=== PATIENT | female | born 1975 | race Caucasian/White ===

== ENCOUNTER 2019-11-29 23:33 | Emergency (ER) | payer BC, SELFPAY ==
--- NOTE | ~2019-11-29 | XR_ITS ---
EXAMINATION: XR chest 2V DATE: 11/30/2019 00:28 INDICATION: Chest pain TECHNIQUE: PA and lateral views of the chest were obtained. COMPARISON: None FINDINGS: The lungs are clear with no focal airspace opacities, pulmonary edema, pleural effusion or pneumothor ax. The cardiomediastinal silhouette is normal. Mild thoracic spondylosis. IMPRESSION: 1. No acute cardiopulmonary disease. Reviewed, dictated and finalized at location A.
[2019-11-29 23:45] VITALS: BP 134/86; PULSE 86; RESP 16; TEMP 37; O2SAT 100
[2019-11-29 23:49] VITALS: PULSE 86
--- NOTE | 2019-11-29 23:52 | ED.CHESTPAIN ---
HPI - Chest Pain General Chief Complaint: Chest Pain Stated Complaint: chest pain Time Seen by Provider: 11/29/19 23:45 History of Present Illness HPI narrative: 44-year-old female presents emergency department with a 3-day history of patient rates pain 6 out of 10. She denies any cough, fever or chills. She has had some nasal congestion with a headache but was able to go to work today. She has been taking ibuprofen and Tylenol without relief. Pain in the right side of the chest increases with deep inspiration. She denies any travel history or exposure to anyone with illness. Related Data Allergies Allergy/AdvReac Type Severity Reaction Status Date / Time No Known Allergies Allergy Unverified 12/31/15 15:14 Review of Systems Review of Systems: Narrative: CONSTITUTIONAL: Denies fever, chills, or sweats. EYES: Denies visual changes or discharge. Had an injection to the right eye today and has some redness related to injection. ENT: Denies rhinorrhea, sore throat, or otalgia. Reports nasal congestion. CARDIOVASCULAR: Reports chest pain, denies palpitations. RESPIRATORY: Noted intermittent shortness of breath on Friday. GASTROINTESTINAL: Denies abdominal pain, vomiting. Has had occasional nausea and diarrhea. GENITOURINARY: Denies dysuria or hematuria. SKIN: Denies rash or itching. MUSCULOSKELETAL: Denies back pain, joint pain, or myalgia. Denies lower extremity pain. NEUROLOGIC: Denies numbness, or weakness. Reports headache PSYCHIATRIC: Denies anxiety or depression. [facility] Past Medical History Medical History (Updated 11/30/19 @ 02:01 by SUDHIR Arango) Hypothyroidism PXE (pseudoxanthoma elasticum) Social History Social History (Updated 11/30/19 @ 00:21 by SUDHIR Arango) Smoking status: Former smoker Alcohol intake: current Substance use: never Living arrangements: with family Gender identity (if verbalized by the patient): Female Exam Narrative: Exam Narrative: GENERAL: no acute distress. HEAD: Normocephalic, atraumatic. EYES:Sclera right eye is erythematic-pt had injection today due to PXE (states normal after injection). Slcera otherwise anicteric. ENT: Nares clear, no rhinorrhea or epistaxis. Mucous membranes moist. NECK: Supple. CHEST: Clear to auscultation. No respiratory distress. Pain is reproducible with pressure applied to right side of chest. No rash. HEART: Regular rate and rhythm. No murmur heard. Normal peripheral pulses. ABDOMEN: Soft, nontender, nondistended, normal active bowel sounds. EXTREMITIES: Normal range of motion. No edema. SKIN: Warm, dry, no rash. NEURO: No focal deficits. Alert and oriented x3. PSYCH: Normal mood and affect. Course Course Emergency Course: Pt reports some mild relief after toradol to tightness in chest but not complete relief. Discussed lab/diagnostic findings and liklihood of M/S pain. Pt comfortable being d/c home. HOme with spouse. Vital Signs Vital signs: Vital Signs Temperature 37.0 C 11/29/19 23:45 Pulse Rate 86 11/29/19 23:45 Respiratory Rate 16 11/29/19 23:45 Blood Pressure 134/86 11/29/19 23:45 Pulse Oximetry 100 11/29/19 23:45 Temperature 37.0 C 11/29/19 23:45 Pulse Rate 84 11/30/19 01:06 Respiratory Rate 16 11/30/19 01:06 Blood Pressure 128/78 11/30/19 01:06 Pulse Oximetry 98 11/30/19 01:06 MDM - Chest Pain MDM Narrative Medical decision making narrative: Pt had presented with a 4 day history of chest tightness that has not been relieved with ibuprofen/tylenol (taken intermittently) at home. She went to work today and was able to work through the pain but states noted an increase this evening which brought her to the ED. She is tearful and anxious in the room and reports feeling anxious about the symptoms. She had scheduled an appointment with her PCP for tomorrow but felt evaluation sooner was needed. Her PERC score is 0. She has not been tachycardic or hypoxic in the ED. Pain is repr
--- NOTE | 2019-11-29 23:56 | ECG_ITS ---
Measurements Intervals [place] Rate: 86 P: 63 [place]: 143 QRS: 50 QRSD: 90 T: 55 QT: 362 QTc: 435 Interpretive Statements SINUS RHYTHM BASELINE ARTIFACT- I, II, III, AVR, AVL, AVF NORMAL ECG Electronically Signed On 11-30-2019 7:18:23 CDT by Rodrigue gM D.O.
[2019-11-30 00:27] LABS: Basophils Absolute Auto 0.1 K/mm3 (0.0-0.1); Basophils Percent Auto 0.5 % (0.2-1.2); Eosinophils Absolute Auto 0.2 K/mm3 (0-0.3); Eosinophils Percent Auto 1.5 % (0-4.4); Hematocrit 42.3 % (37.0-47.0); Immature Granulocyte Absolute 0.05 K/mm3 (0.00-0.031); Immature Granulocyte Percent A 0.4 % (0-0.5); Lymphocytes Absolute Auto 2.65 K/mm3 (0.9-3.2); Lymphocytes Percent Auto 22.2 % (18.3-44.2); Mean Corpuscular HGB Conc 33.1 g/dl (32-36); Mean Corpuscular Hemoglobin 31.4 pg (26-34); Mean Corpuscular Volume 94.8 fl (80-100); Mean Platelet Volume 11.2 fl (7.4-10.4); Monocytes Percent Auto 8.5 % (2.6-8.5); Neutrophils Percent Auto 66.9 % (45.5-73.1); Platelet Count Result 328 k/mm3 (150-375); Red Blood Count 4.46 M/mm3 (4.2-5.4); Red Cell Distribution Width 12.5 % (11.5-14.5); White Blood Count 11.9 K/mm3 (4.5-10.0)
[2019-11-30] MEDS: ASPIRIN 81 MG CHEWABLE TABLET 324 MG PO (00:32)
[2019-11-30 00:54] LABS: INR 0.9; Prothrombin Time 12.2 Seconds (11.1-14.7)
[2019-11-30 00:55] LABS: Partial Thromboplastin Time 29.6 SECONDS (22.3-36.8)
[2019-11-30 01:01] LABS: Alanine Aminotransferase 16 U/L (4-35); Albumin Level 4.4 g/dL (3.5-5.1); Alkaline Phosphatase 83 U/L (38-126); Aspartate Amino Transferase 21 U/L (14-36); Bilirubin,Total 0.2 mg/dL (0.2-1.3); Blood Urea Nitrogen 12 mg/dL (7-17); Calcium 9.3 mg/dL (8.4-10.2); Carbon Dioxide 25 mmol/L (22-30); Chloride 107 mmol/L (98-107); Estimated CRCL calculation 87 ml/min; Estimated Glomerular Filt Rate > 60; Glucose 118 mg/dL (65-105); Potassium 3.9 mmol/L (3.4-5.0); Sodium 137 mmol/L (137-145)
[2019-11-30 01:06] VITALS: BP 128/78; PULSE 84; RESP 16; O2SAT 98
[2019-11-30 01:13] LABS: Troponin I < 0.012 ng/mL (0.000-0.034)
[2019-11-30] MEDS: KETOROLAC 30 MG/ML VIAL (*BKC) IV PUSH (01:30)
[2019-11-30 02:09] VITALS: BP 120/81; PULSE 76; RESP 16; O2SAT 98
== END 2019-11-30 02:12 | disposition home or self-care (01) ==
PROVIDERS: Nurse Practitioner; PCP Family Medicine
DX: M94.0 Chondrocostal junction syndrome [Tietze] (principal); E03.9 Hypothyroidism, unspecified; Z87.891 Personal history of nicotine dependence; Q82.8 Other specified congenital malformations of skin
CPT/HCPCS: 36415; 71046; 80053; 84484; 85025; 85610; 85730; 93005; 96374; 99284; A9270; J1885

== ENCOUNTER 2020-03-07 07:09 | Outpatient (CLI) | payer BC, SELFPAY ==
--- NOTE | ~2020-03-07 | XR_ITS ---
EXAMINATION: XR cervical spine 4-5V EXAM DATE: 03/07/2020 07:24 INDICATION: Cervicalgia. TECHNIQUE: Cervical spine frontal, lateral, lateral swimmers, and open-mouth odontoid projections. There is no prior study for comparison. FINDINGS: There is no evidence of acute cervical fracture. The odontoid process is intact. Pre-dens space is normal. Prevertebral soft tissue is normal. There are no soft tissue abnormalities identi fied. There is 2 mm anterolisthesis C4 on C5. The vertebral bodies are otherwise aligned. There is moderate right C4-5 facet arthropathy, thus arthropathy at other levels. Vertebral body and disc heig hts are well-maintained. IMPRESSION: 1. C4-5 moderate right facet arthropathy, less arthropathy other levels. Reviewed, dictated and finalized at location B.
== END 2020-03-07 07:10 | disposition home or self-care (01) ==
LOC: ANHIMG 07:11
PROVIDERS: PCP Family Medicine; Visit Provider Physician Assistant
DX: M54.2 Cervicalgia (principal); M12.88 Other specific arthropathies, not elsewhere classified, other specified site
CPT/HCPCS: 72050

== ENCOUNTER → 2020-07-21 11:17 | Outpatient (CLI) | payer BC, SELFPAY ==
--- NOTE | ~2020-07-21 | MM_ITS ---
EXAMINATION: MM screening [facility] BI w ericka HISTORY: Screening mammogram TECHNIQUE: Craniocaudal and mediolateral oblique 3-D tomosynthesis images were obtained and synthetic 2-D images were generated. CAD analysis was submitted and interpreted. COMPARISON: 06/15/2019, 05/21/2019 BREAST PARENCHYMAL COMPOSITION: The breasts are heterogeneously dense, which may obscure small masses . FINDINGS: There is no evidence of suspicious mass, calcification, or architectural distortion to sugg est malignancy in either breast. There has been no suspicious interval change. IMPRESSION: 1. No mammographic evidence of malignancy. 2. Recommend routine screening mammography in one year. BI-RADS Category 1: Negative Reviewed, dictated and finalized at location A. MACOMETRICIAN
== END ==
PROVIDERS: Visit Provider Obstetrics & Gynecology
DX: Z12.31 Encounter for screening mammogram for malignant neoplasm of breast (principal)
CPT/HCPCS: 77063; 77067

== ENCOUNTER → 2020-11-10 15:51 | Outpatient (CLI) | payer BC, SELFPAY ==
--- NOTE | ~2020-11-10 | XR_ITS ---
EXAMINATION: XR ribs BI 3V w CXR 2V INDICATION: Other chest pain, chest tightness TECHNIQUE: PA and lateral views of the chest and 3 views of the bilateral ribs were obtained. COMPARISON: 11/30/2019 FINDINGS: The lungs are free of acute opacities. There is no pleural effusion or pneumothorax. The ca rdiomediastinal silhouette is normal. There is mild thoracic spondylosis. No displaced rib fracture i s identified. IMPRESSION: 1. No acute cardiopulmonary abnormality or evidence of displaced rib fracture. Reviewed, dictated and finalized at location A. RIAL MARKER DESIGNER
== END ==
PROVIDERS: PCP Family Medicine; Visit Provider Physician Assistant
DX: U07.1 COVID-19 (principal); R07.89 Other chest pain
CPT/HCPCS: 71046; 71110

== ENCOUNTER → 2021-07-23 14:46 | Outpatient (CLI) | payer BC, SELFPAY ==
--- NOTE | ~2021-07-23 | MM_ITS ---
EXAMINATION: MM screening [facility] BI w ericka HISTORY: Screening mammogram TECHNIQUE: Craniocaudal and mediolateral oblique 3-D tomosynthesis images were obtained and synthetic 2-D images were generated. CAD analysis was submitted and interpreted. COMPARISON: 07/21/2020, 06/15/2019, 06/07/2019 BREAST PARENCHYMAL COMPOSITION: The breasts are heterogeneously dense, which may obscure small masses . FINDINGS: There is no evidence of suspicious mass, calcification, or architectural distortion to sugg est malignancy in either breast. There has been no suspicious interval change. IMPRESSION: 1. No mammographic evidence of malignancy. 2. Recommend routine screening mammography in one year. BI-RADS Category 1: Negative Reviewed, dictated and finalized at location A. M TENDER
== END ==
PROVIDERS: Visit Provider Obstetrics & Gynecology
DX: Z12.31 Encounter for screening mammogram for malignant neoplasm of breast (principal)
CPT/HCPCS: 77063; 77067

== ENCOUNTER → 2022-08-14 12:25 | Outpatient (CLI) | payer BC, SELFPAY ==
--- NOTE | ~2022-08-14 | MM_ITS ---
EXAMINATION: MM screening [facility] BI w ericka HISTORY: Screening mammogram TECHNIQUE: Craniocaudal and mediolateral oblique 3-D tomosynthesis images were obtained and synthetic 2-D images were generated. CAD analysis was submitted and interpreted. COMPARISON: 07/23/2021, 07/21/2020, 06/27/2019, 06/07/2019 BREAST PARENCHYMAL COMPOSITION: The breasts are heterogeneously dense, which may obscure small masses . FINDINGS: No suspicious mass, calcification, or architectural distortion are identified in either joshua ast to suggest malignancy. There has been no suspicious interval change. IMPRESSION: 1. No mammographic evidence of malignancy. 2. Recommend routine screening mammography in one year. BI-RADS Category 1: Negative Reviewed, dictated and finalized at location A. E OUT WORKER
== END ==
PROVIDERS: PCP Family Medicine; Visit Provider Nurse Practitioner
DX: Z12.31 Encounter for screening mammogram for malignant neoplasm of breast (principal)
CPT/HCPCS: 77063; 77067

== ENCOUNTER → 2023-07-12 08:18 | Outpatient (CLI) | payer BC, SELFPAY ==
--- NOTE | ~2023-07-12 | US_ITS ---
EXAMINATION: US pelvic complete DATE: 07/12/2023 08:41 INDICATION: Pelvic fullness, uterine enlargement TECHNIQUE: Multiple transabdominal and endovaginal sonographic images of the pelvis were obtained. COMPARISON: None. FINDINGS: The uterus measures 10.4 x 4.7 x 5.0 cm. The endometrial complex measures 13 mm. The right ovary measures 4.8 x 3.5 x 3.6 cm. There is a 2.6 x 2.7 x 2.3 cm cyst of the right ovary with thin se ptations and questionable eccentric thickening. The left ovary measures 5.0 x 4.9 x 5.2 cm and contai ns a 4.8 cm cyst. There is normal vascular flow in the ovaries. There is no free fluid in the pelvis. IMPRESSION: 1. Probable complicated cyst of the right ovary. Follow-up ultrasound in six months is recommended. Reviewed, dictated and finalized at location F. IMPRESSION: 1. Probable complicated cyst of the right ovary. Follow-up ultrasound in six mo nths is recommended.
== END ==
PROVIDERS: PCP Advanced Practice Midwife; Visit Provider Advanced Practice Midwife
DX: N85.2 Hypertrophy of uterus (principal)
CPT/HCPCS: 76856

== ENCOUNTER 2023-08-06 09:11 | Outpatient (CLI) | payer BC, SELFPAY ==
--- NOTE | ~2023-08-06 | XR_ITS ---
Right foot Technique: AP, oblique, and lateral views were obtained. Clinical History: Other specified soft tissue disorder Findings: No acute fracture or dislocation is seen. Osseous alignment is anatomic. Joint spaces are p reserved without erosive or degenerative change. Soft tissues are unremarkable. Impression: Unremarkable right foot radiographs. Reviewed, dictated and finalized at location . RITY ENGINEER Impression: Unremarkable right foot radiographs.
--- NOTE | ~2023-08-06 | XR_ITS ---
Right ankle Technique: AP, oblique, and lateral views were obtained. Clinical History: Joint effusion Findings: No acute fracture or dislocation is seen. Osseous alignment is anatomic. Ankle mortise and other visualized joint spaces are preserved. Soft tissues are otherwise unremarkable. Impression: Unremarkable right ankle. Reviewed, dictated and finalized at location . NDARY SPECIAL EDUCATION TEACHER Impression: Unremarkable right ankle.
--- NOTE | ~2023-08-06 | US_ITS ---
EXAMINATION:US venous doppler LE RT INDICATION:Right leg pain and swelling TECHNIQUE: Multiple grayscale, color flow and Doppler images of the right lower extremity deep venous systems were obtained and reviewed. COMPARISON:No prior studies for comparison. FINDINGS: The common femoral, superficial femoral and popliteal veins demonstrate normal respiratory variation, augmentation and compressibility. Color flow is also seen within the posterior tibial, pe roneal, greater saphenous and profunda veins. IMPRESSION: 1: No lower extremity deep venous thrombosis. Reviewed, dictated and finalized at location B. TAPPER
== END 2023-08-06 09:12 | disposition home or self-care (01) ==
PROVIDERS: PCP Family Medicine; Visit Provider Physician Assistant Medical
DX: M79.89 Other specified soft tissue disorders (principal); M25.471 Effusion, right ankle
CPT/HCPCS: 73610; 73630; 93971

== ENCOUNTER → 2023-09-26 13:11 | Outpatient (CLI) | payer BC, SELFPAY ==
--- NOTE | ~2023-09-26 | XR_ITS ---
XR knee RT 3V DATE: 09/26/2023 13:33 INDICATION: Right knee pain TECHNIQUE: [place] and standing AP and lateral views COMPARISON: None FINDINGS: No fracture or dislocation or joint effusion. No periosteal reaction or bone destruction. J oint spaces are preserved. No radiopaque intra-articular loose body or chondrocalcinosis. IMPRESSION: Negative Reviewed, dictated and finalized at location B. R TOBACCO REHANDLER IMPRESSION: Negative
== END ==
PROVIDERS: PCP Physician Assistant Medical; Visit Provider Physician Assistant Medical
DX: M25.561 Pain in right knee (principal)
CPT/HCPCS: 73562

== ENCOUNTER → 2023-10-09 11:54 | Outpatient (CLI) | payer BC, SELFPAY ==
--- NOTE | ~2023-10-09 | MM_ITS ---
EXAMINATION: MM screening [facility] BI w ericka HISTORY: Screening TECHNIQUE: Craniocaudal and mediolateral oblique 3-D tomosynthesis images were obtained and synthetic 2-D images were generated. CAD analysis was submitted and interpreted. COMPARISON: Comparison to multiple prior studies sequentially, with oldest reviewed study dated 06/07. BREAST PARENCHYMAL COMPOSITION: Dense: The breasts are heterogeneously dense, which may obscure small masses FINDINGS: There is no evidence of suspicious mass, calcification, or architectural distortion to sugg est malignancy in either breast. There has been no suspicious interval change. IMPRESSION: 1. No mammographic evidence of malignancy. 2. Recommend routine screening mammography in one year. BI-RADS Category 1: Negative Reviewed, dictated and finalized at location A. GHT TRUCKER
== END ==
PROVIDERS: PCP Advanced Practice Midwife; Visit Provider Advanced Practice Midwife
DX: Z12.31 Encounter for screening mammogram for malignant neoplasm of breast (principal)
CPT/HCPCS: 77063; 77067

== ENCOUNTER 2023-10-27 08:13 | Outpatient (CLI) | payer BC, SELFPAY ==
--- NOTE | ~2023-10-27 | US_ITS ---
Pelvic ultrasound. Clinical History: Ovarian cyst COMPARISON: 07/12/2023 Technique: Realtime transabdominal and transvaginal scanning of the pelvis was performed. Color flow Doppler and Doppler spectral analysis were performed. Findings: The uterus is anteverted, and measures 9.7 x 4.0 x 4.7 cm. The endometrial stripe has a th ickness of 4 mm. No focal mass is identified. The right ovary measures 4.3 x 2.9 x 4.7 cm. Right ovarian cysts are present, largest measuring 3.3 c m in diameter. The left ovary measures 5.9 x 3.8 x 4.7 cm. Simple left ovarian cyst measures 5.0 cm in diameter. There is no evidence of free fluid in the cul de sac. Impression: 5.0 cm simple left ovarian cyst, similar to prior exam. Multiple right ovarian cysts, largest measuring 3.3 cm, similar in overall appearance to prior exam. Reviewed, dictated and finalized at [facility]. L PLATER Impression: 5.0 cm simple left ovarian cyst, similar to prior exam. Multiple right ovarian cysts, largest measuring 3.3 cm, similar in overall appe arance to prior exam.
== END 2023-10-27 08:14 ==
PROVIDERS: PCP Obstetrics & Gynecology Gynecology; Visit Provider Obstetrics & Gynecology Gynecology
DX: N83.202 Unspecified ovarian cyst, left side (principal); N83.201 Unspecified ovarian cyst, right side
CPT/HCPCS: 76830

== ENCOUNTER 2024-02-03 08:41 | Outpatient (CLI) | payer BC, SELFPAY ==
--- NOTE | ~2024-02-03 | US_ITS ---
EXAMINATION: US pelvic complete DATE: 02/03/2024 09:02 INDICATION: Follow-up ovarian cysts Comparison:Ultrasound dated 10/27/2023 TECHNIQUE: Multiple transabdominal and endovaginal sonographic images of the pelvis performed. FINDINGS: The uterus measures 10.6 x 3.7 x 5.2 cm. The endometrial complex measures 5 mm. The right ovary measures 4.1 x 4 x 2.5 cm and the left ovary measures 2.3 x 4.3 x 5.5 cm. There are small follicles in each ovary. There are bilateral ovarian cysts, largest on the right measuring 2.8 cm and on the left measuring 4.5 cm per Normal doppler signal in both ovaries. There is no free fluid in the pelvis. There are no abnormal masses seen on either side. IMPRESSION: 1. Simple bilateral ovarian cysts, largest on the left ovary measuring 4.5 cm. Reviewed, dictated and finalized at location B.
== END 2024-02-03 08:42 ==
LOC: MICIMG 08:42
PROVIDERS: PCP Family Medicine; Visit Provider Obstetrics & Gynecology Gynecology
DX: N83.201 Unspecified ovarian cyst, right side (principal); N83.202 Unspecified ovarian cyst, left side
CPT/HCPCS: 76856

== ENCOUNTER 2024-03-22 08:20 | Outpatient (CLI) | payer BC, SELFPAY ==
--- NOTE | ~2024-03-22 | US_ITS ---
Pelvic ultrasound. Clinical History: Ovarian cyst Technique: Realtime transabdominal scanning of the pelvis was performed. Color flow Doppler and Doppl er spectral analysis were performed. COMPARISON: 01/26/2024 Findings: The uterus is anteverted, and measures 10.4 x 3.9 x 5.2 cm. The endometrial stripe has a t hickness of 7 mm. No focal mass is identified. The right ovary measures 4.3 x 2.7 cm. Several small simple right ovarian cysts are present, largest measuring 2 cm in maximum diameter.. The left ovary measures 4.9 x 4.3 x 4.3 cm. Simple left ovarian cyst measures up to 4.1 cm in maximum diameter. There is no evidence of free fluid in the cul de sac. Impression: Bilateral simple ovarian cysts, as detailed above, largest in the left ovary measuring 4.1 cm in diam eter. Findings overall are similar to prior exam. Right ovarian cysts are probably mildly decreased i n size. Reviewed, dictated and finalized at location . Impression: Bilateral simple ovarian cysts, as detailed above, largest in the left ovary me asuring 4.1 cm in diameter. Findings overall are similar to prior exam. Right o varian cysts are probably mildly decreased in size.
== END 2024-03-22 08:21 ==
PROVIDERS: PCP Obstetrics & Gynecology Gynecology; Visit Provider Obstetrics & Gynecology Gynecology
DX: N83.292 Other ovarian cyst, left side (principal); N83.291 Other ovarian cyst, right side
CPT/HCPCS: 76856

== ENCOUNTER 2024-08-19 11:22 | Outpatient (CLI) | payer BC, SELFPAY ==
--- NOTE | ~2024-08-19 | US_ITS ---
EXAMINATION: US pelvic complete DATE: 08/19/2024 INDICATION: Pelvic pain. TECHNIQUE: Multiple transabdominal sonographic images of the pelvis were obtained. COMPARISON: Pelvis ultrasound 03/22/2024, 02/03/24, 07/12/23 FINDINGS: The uterus measures 9.7 x 4.7 x 4.6 cm. There is no free fluid in the pelvis. The endometrial complex measures 9 mm in thickness. The right ovary measures 5.4 x 3.4 x 3.2 cm. The left ovary measures 4.9 x 3.7 x 5.8 cm. There is a 4.2 cm hypoechoic mass with low-level echoes in the left ovary, consisten t with a hemorrhagic cyst. There is normal vascular flow in the ovaries. IMPRESSION: 1. Chronic 4.2 cm mass in the left ovary, likely a hemorrhagic cyst or endometrioma. Reviewed, dictated and finalized at location A. L EXAMINER IMPRESSION: 1. Chronic 4.2 cm mass in the left ovary, likely a hemorrhagic cyst or endometr ioma.
== END 2024-08-19 11:23 | disposition home or self-care (01) ==
LOC: MICIMG 11:23
PROVIDERS: PCP Nurse Practitioner; Visit Provider Nurse Practitioner
DX: N83.202 Unspecified ovarian cyst, left side (principal)
CPT/HCPCS: 76856

== ENCOUNTER 2024-10-04 08:21 | Outpatient (CLI) | payer BC, SELFPAY ==
--- NOTE | ~2024-10-04 | US_ITS ---
Pelvic ultrasound. Clinical History: Ovarian cyst COMPARISON: 08/19/2024 Technique: Realtime transabdominal scanning of the pelvis was performed. Color flow Doppler and Doppl er spectral analysis were performed. Findings: The uterus is anteverted. The endometrial stripe has a thickness of 12 mm. No focal mass i s identified. The right ovary measures 3.3 x 4.4 x 3.0 cm. Simple right ovarian cyst measures up to 2.[address] The left ovary measures 4.5 x 3.6 x 4.3 cm. Simple left ovarian cyst measures 3.[address] maximum diame ter. There is no evidence of free fluid in the cul de sac. Impression: Bilateral simple ovarian cysts, measuring 3.7 cm on the left, and 2.8 cm on the right. Reviewed, dictated and finalized at location M. PROCESSOR Impression: Bilateral simple ovarian cysts, measuring 3.7 cm on the left, and 2.8 cm on the right.
== END 2024-10-04 08:22 | disposition home or self-care (01) ==
LOC: MICIMG 08:22
PROVIDERS: PCP Family Medicine; Visit Provider Obstetrics & Gynecology Gynecology
DX: N83.292 Other ovarian cyst, left side (principal); N83.291 Other ovarian cyst, right side
CPT/HCPCS: 76856

== ENCOUNTER 2024-10-18 07:34 | Outpatient (CLI) | payer BC, SELFPAY ==
--- NOTE | ~2024-10-18 | MM_ITS ---
EXAMINATION: MM screening [facility] BI w ericka HISTORY: Screening TECHNIQUE: Craniocaudal and mediolateral oblique 3-D tomosynthesis images were obtained and synthetic 2-D images were generated. CAD analysis was submitted and interpreted. COMPARISON: Comparison to multiple prior studies sequentially, with oldest reviewed study dated 06/07. BREAST PARENCHYMAL COMPOSITION: Dense: The breasts are heterogeneously dense, which may obscure small masses FINDINGS: There is no evidence of suspicious mass, calcification, or architectural distortion to sugg est malignancy in either breast. There has been no suspicious interval change. IMPRESSION: 1. No mammographic evidence of malignancy. 2. Recommend routine screening mammography in one year. BI-RADS Category 1: Negative Reviewed, dictated and finalized at location B. RNET DESIGNER
== END 2024-10-18 07:35 | disposition home or self-care (01) ==
LOC: MICIMG 07:35
PROVIDERS: PCP Family Medicine; Visit Provider Obstetrics & Gynecology Gynecology
DX: Z12.31 Encounter for screening mammogram for malignant neoplasm of breast (principal)
CPT/HCPCS: 77063; 77067

== ENCOUNTER 2024-12-06 11:50 | Outpatient (CLI) | payer BC, SELFPAY ==
--- NOTE | ~2024-12-06 | XR_ITS ---
XR_CERV2-3V_CR 12/06/2024 12:10 Indication: Cervicalgia Procedure: 4 view cervical spine Comparison: Findings: Vertebral body heights are maintained. No prevertebral soft tissue swelling. There is multi level uncinate and facet hypertrophy. Lung apices are normal. Odontoid process is normal. Impression: 1: Moderate cervical spondylosis primarily involving the facet joints. Reviewed, dictated and finalized at location A. Impression: 1: Moderate cervical spondylosis primarily involving the facet joints.
== END 2024-12-06 11:51 | disposition home or self-care (01) ==
LOC: MICIMG 11:52
PROVIDERS: PCP Family Medicine; Visit Provider Physician Assistant Medical
DX: M47.812 Spondylosis without myelopathy or radiculopathy, cervical region (principal)
CPT/HCPCS: 72040

== ENCOUNTER 2024-12-13 07:58 | Outpatient (CLI) | payer BC, SELFPAY ==
--- NOTE | ~2024-12-13 | US_ITS ---
US pelvic complete Ordering provider: Pati Link MD History: . R ovarian cyst 6 week f/u . Comparison: October 04, 2024 Technique: Transabdominal ultrasound of the pelvis (Doppler ultrasound interrogation techniques used as needed for this exam.) FINDINGS: CERVIX: Normal. UTERUS: Measures 10x 5.3x 5.2 cm in length which is within normal limits and is anteverted. No myome trial masses. ENDOMETRIUM: Normal in thickness measuring 8 mm. (Note: the premenopausal endometrium may measure up to 16 mm when in the secretory phase.) No endometrial masses, cysts or fluid. CUL DE SAC: No free fluid. RIGHT OVARY: Normal in size measuring 4.2x 2.7x 2.5 cm. Normal echotexture. Doppler vascular flow pre sent. Cyst is seen measuring 2.6 x 2.4 x 2.5 cm. LEFT OVARY: Normal in size measuring 5.7x 4.3x 4 cm. Normal echotexture. Doppler vascular flow presen t. Cysts are seen measuring 3.2 x 4.1 x 4.1 cm and 2.3 x 2.5 x 2.8 cm. ADNEXA: Normal. No mass. IMPRESSION: Bilateral ovarian cysts Otherwise, normal pelvic ultrasound. Reviewed, dictated and finalized at location A.
== END 2024-12-13 07:59 | disposition home or self-care (01) ==
LOC: MICIMG 07:58
PROVIDERS: PCP Family Medicine; Visit Provider Obstetrics & Gynecology Gynecology
DX: N83.202 Unspecified ovarian cyst, left side (principal); N83.201 Unspecified ovarian cyst, right side
CPT/HCPCS: 76856

== ENCOUNTER 2025-04-19 02:13 | Day surgery (SDC) | payer BC, SELFPAY ==
[2025-04-07 11:10] VITALS: BMI 26.2
--- OUTSIDE RECORDS SUMMARY | 2025-04-19 02:16 | XMS_ITS | Clinical Summary ---
Author Organization [facility] Address [address] [place] [id number] Care Team Providers Care Foam Caster Name Role Phone Marquez Tomlinson MD Primary Care Provider Allergies No known active allergies Medications No known medications Active Problems Problem Noted Date Diagnosed Date Lipid screening 01/26/2024 Anxiety 03/27/2020 Pseudoxanthoma elasticum 03/27/2020 Chest pain 03/27/2020 Pain in both lower extremities 03/27/2020 Medical History Medical History Date Comments PXE (pseudoxanthoma elasticum) Anxiety and depression Poor circulation Family History Medical History Relation Name Comments No Known Problems Brother Heart attack Father Non-Hodgkin's Lymphoma Father No Known Problems Sister Relation Name Status Comments Brother Alive Father (Age 57) Mother Alive Sister Alive Social History Tobacco Use Types Packs/Day Years Used Date Smoking Tobacco: Never Smokeless Tobacco: Never Tobacco Cessation:Counseling Given: Not Answered Alcohol Use Standard Drinks/Week Comments Yes 8 (1 standard drink = 0.6 oz pur e alcohol) Comments Unknown Sex and Gender Information Value Date Recorded Sex Assigned at Not on file Legal Sex Female 4:59 PM HUMAN RESOURCES OFFICER Gender Identity Not on file Sexual Orientation Not on file Obstetrics History Last Filed Vital Signs Vital Sign Reading Time Taken Comments Blood Pressure 122/78 09/14/2024 8:20 AM HUMAN RESOURCES OFFICER Pulse 80 09/14/2024 8:20 AM HUMAN RESOURCES OFFICER Temperature 36.8 C (98.2 F) 04/12/2020 8:53 AM CDT Respiratory Rate 14 07/18/2023 9:30 AM HUMAN RESOURCES OFFICER Oxygen Saturation 99% 09/14/2024 8:20 AM HUMAN RESOURCES OFFICER Inhaled Oxygen Concentration - - Weight 69.4 kg (153 lb) 09/14/2024 8:20 AM HUMAN RESOURCES OFFICER Height 160 cm (5' 3) 09/14/2024 8:20 AM HUMAN RESOURCES OFFICER Body Mass Index 27.1 09/14/2024 8:20 AM HUMAN RESOURCES OFFICER Plan of Treatment Health Maintenance Due Date Last Done Comments Breast Cancer Screening-Mammogram 1977 Cervical Cancer Screening 1977 Colon Cancer Screening-Colonoscopy 1977 Depression Screening 1977 Hepatitis C Screening 1977 DTaP/Tdap/Td Vaccine (1 - Tdap) 1988 Hepatitis B Screening 1995 Regular Well Visit/Exam 18-64 1995 Influenza Vaccine (#1) 2025 Pneumococcal vaccine <65 Aged Out No longer eligible based on patient's age to complete this topic Insurance [employer] OOS [employer] OOS Care Teams Foam Caster Relationship Specialty Start Date End Date Marquez Tomlinson MD [address] [facility] [address] [place] [address] PCP - General Family Medicine 03/13/20
--- OUTSIDE RECORDS SUMMARY | 2025-04-19 02:16 | XMS_ITS | Clinical Summary ---
Author Organization [facility] Address [address] [place] [address] Care Team Providers Care Thread Milling Machine Set Up Operator Name Role Phone Marquez Tomlinson MD Primary Care Provider [phone] Source Comments [facility],non-owned Affiliates and Associated Physician Practices is amultiple site organization consisting of ambulatory clinics and hospital sitesin [place], [place], [place] and [place]. This disclosure is being madepursuant to the Care Everywhere program and may not contain all information available regarding this patient. Last updated 18.[facility] Allergies No known active allergies Medications * Be aware that medications may not be up to date on this document. Alwaysverify current medications with the patient. 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 FEEDER Gender Identity Not on file Sexual Orientation Not on file Last Filed Vital Signs Vital Sign Reading Time Taken Comments Blood Pressure 104/68 10/01/2017 6:12 PM BRAZING MACHINE FEEDER Pulse 73 10/01/2017 6:12 PM BRAZING MACHINE FEEDER Temperature 36.8 C (98.3 F) 10/01/2017 6:12 PM BRAZING MACHINE FEEDER Respiratory Rate 16 10/01/2017 6:12 PM BRAZING MACHINE FEEDER Oxygen Saturation 98% 10/01/2017 6:12 PM BRAZING MACHINE FEEDER Inhaled Oxygen Concentration - - Weight 68 kg (150 lb) 10/01/2017 6:12 PM BRAZING MACHINE FEEDER Height 160 cm (5' 3) 04/15/2018 10:31 AM CDT Body Mass Index 26.57 10/01/2017 6:12 PM BRAZING MACHINE FEEDER Plan of Treatment Health Maintenance Due Date Last Done Comments COLOGUARD (AGES 45-75) - COL ON CA SCREENING 1977 COLON MONITORING 1977 COLONOSCOPY - COLON CA SCREENING 1977 CT COLONOGRAPHY - COLON CA SCREENING 1977 Colorectal Cancer Screening 1977 FIT - COLON CA SCREENING 1977 FLEX SIG - COLON CA SCREENING 1977 LIPID TESTING 1977 MAMMOGRAM 1977 HIV SCREENING 1992 HEPATITIS C SCREENING 10/22/1995 DTAP/TDAP/TD VACCINES (1 - Tdap) 1996 HEPATITIS B VACCINE (1 of 3 - 19+ 3-dose series) 1996 SCREENING FOR DIABETES 04/15/2018 COVID-19 VACCINE (1 - 2023-2 5 season) 2024 DEPRESSION SCREENING 09/08/2024 INFLUENZA VACCINE (#1) 2025 ZOSTER VACCINE (1 of 2) 2027 HIB VACCINE Aged Out No longer eligi ble based on patient's age to complete this topic HPV VACCINE Aged Out No longer eligi ble based on patient's age to complete this topic MENINGOCOCCAL (Group B) VACC INE SHARED DECISION-MAKING Aged Out No longer eligibl e based on patient's age to complete this topic MENINGOCOCCAL GROUPS A/C/Y/W VACCINE Aged Out No longer eligible b ased on patient's age to complete this topic PNEUMOCOCCAL VACCINE Aged Out No long er eligible based on patient's age to complete this topic Insurance ANTHEM ANTHEM Care Teams Thread Milling Machine Set Up Operator Relationship Specialty Start Date End Date Marquez Tomlinson MD [address] [place] [address] PCP - General Family Medicine 09/09/16
--- NOTE | 2025-04-19 06:59 | P.PNAN_ITS ---
Anes - Initial Pre Proc Eval Procedure: Operation Date: 04/19/25 12:30 Proposed Procedures p Screening Colonoscopy - Brayan Anguiano MD Date/Time: 04/19/25 06:59 Surgeon: Brayan Anguiano MD Pre Op Diagnosis: Encounter for screening for malignant neoplasm of Patient Data Age: 49 Gender: F Height: 1.6 m Weight: 67.2 kg Allergies Allergy/AdvReac Type Severity Reaction Status Date / Time No Known Allergies Allergy Verified 04/19/25 11:17 Home Medications ?Medication ?Instructions ?Recorded ?Confirmed ?Type cetirizine 10 mg tablet 10 mg PO DAILY 02/07/20 04/19/25 History fluticasone propionate 50 1 - 2 spray intranasal BID #18.2 mL 02/09/20 04/19/25 Rx mcg/actuation nasal spray,suspension (Flonase Allergy Relief) Patient hx anesthesia problems: none Family hx anesthesia problems: none Results Review: All pre-operative results and documents have been reviewed as part of the pre- operative evaluation. [facility] Past Medical History Medical History Acquired hypothyroidism Paresthesia PXE (pseudoxanthoma elasticum) Hypothyroidism Family History Family History Father Family history of lymphoma Family history of coronary artery disease Social History Social History Smoking packs per day: 0.5 Smoking cigarettes per day: 10.0 Years smoked: 7 Smoking pack-years: 3.50 Smoking status: Never smoker Tobacco type: cigarettes Second hand tobacco smoke exposure: No Smoking end date: 09/08/98 Alcohol intake: current Drinks per week: 5 Substance use: never Substance use type: does not use Do You Feel Safe in your Home?: Yes Lack of Transportation: No Lack of Food: Never True Current Housing: I Have Housing Concerned About Future Housing: No Difficulty Paying Gas/Electric Bills: No Difficulty Paying for Meds: No Currently Unemployed: No Education: Bachelor's Degree Difficulty w/ Childcare or Family Care: No Living arrangements: with family Occupation/Education: occupation Gender identity (if verbalized by the patient): Female Spiritual care concerns: No Anes - Eval Final PreProcedure Day of Procedure 04/19/25 06:59 Patient weight: overweight Heart: regular rate and rhythm Lungs: clear to auscultation Airway: Mallampati scale class II Neurological: alert and oriented Last oral intake: >/= 8 hours ASA classification: II Emergent: no Anesthetic plan: proceed Anesthesia type and monitoring: general GIVS and standard monitoring Results Review: All pre-operative results and documents have been reviewed as part of the pre- operative evaluation. Informed Consent: The patient's anesthetic plan and its attendant risks and benefits were discussed with the patient/family/POA. Questions were solicited and answers provided to the satisfaction of the patient/family/POA.
[2025-04-19 11:10] VITALS: BP 125/85; PULSE 81; RESP 16; TEMP 36.4; O2SAT 99; BMI 26.1
[2025-04-19 11:23] LABS: BEDSIDEPREGUCG Negative (Negative)
[2025-04-19] MEDS: LACTATED RINGERS 1,000 ML 150 ML IV CONT (11:30)
--- NOTE | 2025-04-19 12:11 | P.HP_ITS ---
H&P: HPI History of Present Illness Date/Time: 04/19/25 12:11 Chief Complaint: Screening colonoscopy Narrative: This is the patient's first colonoscopy. There are no GI symptoms and there is no family history of colorectal cancer. Review of Systems Review of Systems: All systems reviewed & are unremarkable except as noted in HPI and below [facility] Past Medical History Medical History Acquired hypothyroidism Paresthesia PXE (pseudoxanthoma elasticum) Hypothyroidism Family History Family History Father Family history of lymphoma Family history of coronary artery disease Social History Social History Smoking packs per day: 0.5 Smoking cigarettes per day: 10.0 Years smoked: 7 Smoking pack-years: 3.50 Smoking status: Never smoker Tobacco type: cigarettes Second hand tobacco smoke exposure: No Smoking end date: 09/08/98 Alcohol intake: current Drinks per week: 5 Substance use: never Substance use type: does not use Do You Feel Safe in your Home?: Yes Lack of Transportation: No Lack of Food: Never True Current Housing: I Have Housing Concerned About Future Housing: No Difficulty Paying Gas/Electric Bills: No Difficulty Paying for Meds: No Currently Unemployed: No Education: Bachelor's Degree Difficulty w/ Childcare or Family Care: No Living arrangements: with family Occupation/Education: occupation Gender identity (if verbalized by the patient): Female Spiritual care concerns: No Meds Home Medications and Allergies Home Medications ?Medication ?Instructions ?Recorded ?Confirmed ?Type cetirizine 10 mg tablet 10 mg PO DAILY 02/07/20 04/19/25 History fluticasone propionate 50 1 - 2 spray intranasal BID #18.2 mL 02/09/20 04/19/25 Rx mcg/actuation nasal spray,suspension (Flonase Allergy Relief) Allergies Allergy/AdvReac Type Severity Reaction Status Date / Time No Known Allergies Allergy Verified 04/19/25 11:17 Vital Signs Vital Signs - 24 hr 04/19/25 11:10 Temperature 97.6 F Pulse Rate 81 Respiratory Rate 16 Blood Pressure 125/85 Pulse Oximetry 99 Oxygen Delivery Room Air Exam Const: General: cooperative and healthy appearing Resp: Effort & Inspection: normal respiratory effort and able to speak in complete sentences Auscultation: clear to auscultation bilaterally Cardio: Rate: regular rate Rhythm: regular rhythm GI: Inspection: normal to inspection GI Palp: No No hepatosplenomegaly present Auscultation: normal bowel sounds Rectal Exam: deferred Skin: General skin exam: normal color Psych: Appearance: grossly normal Mental Status: mental status grossly normal Assessment and Plan Assessment and plan (1) Encounter for screening colonoscopy: Code(s): Z12.11 - Encounter for screening for malignant neoplasm of colon Status: Acute Assessment and Plan: The patient is deemed a good candidate for the procedure. Consent signed. Will proceed.
[2025-04-19 12:34] VITALS: BP 104/71; PULSE 83; RESP 20; O2SAT 95
[2025-04-19 12:44] VITALS: BP 117/68; PULSE 80; RESP 20; O2SAT 96
[2025-04-19 12:54] VITALS: BP 129/80; PULSE 84; RESP 19; O2SAT 96
== END 2025-04-19 13:01 | disposition home or self-care (01) ==
PROVIDERS: Anesthesiology; PCP Family Medicine; Referring Provider Physician Assistant Medical; Visit Provider Internal Medicine Gastroenterology
PROC: 0DJD8ZZ Inspection of Lower Intestinal Tract, Via Natural or Artificial Opening Endoscopic (ICD-10-PCS; CPT 45378; principal; 2025-04-19 12:30)
DX: Z12.11 Encounter for screening for malignant neoplasm of colon (principal); E03.9 Hypothyroidism, unspecified; Q82.8 Other specified congenital malformations of skin; Z80.7 Family history of other malignant neoplasms of lymphoid, hematopoietic and related tissues; Z82.49 Family history of ischemic heart disease and other diseases of the circulatory system
CPT/HCPCS: 45378; J2704; J7120

== ENCOUNTER 2025-04-25 12:03 | Emergency (ER) | payer BC, SELFPAY ==
[2025-04-25 12:09] VITALS: BP 141/80; PULSE 75; RESP 18; TEMP 36.1; O2SAT 100
[2025-04-25 12:48] VITALS: BP 117/66; PULSE 90
--- NOTE | 2025-04-25 12:48 | ED.DIZZY ---
HPI - Dizziness General Chief Complaint: Dizziness Stated Complaint: Dizzy Time Seen by Provider: 04/25/25 12:27 Source: patient and RN notes reviewed Mode of arrival: ambulatory Limitations: no limitations History of Present Illness HPI Narrative: Patient presents today complaining of nausea, dizziness, lightheadedness, and shortness of breath. Symptoms began suddenly approximately 3 hours prior to exam while she was at work. She sat down for a bit, had some water, then walked around for short period of time. When she did not start feeling better, she called her to come pick her up. Now she is feeling slightly lightheaded, but still having shortness of breath. States she did have breakfast this morning. Reports history panic attack in 2019 and was subsequently seen in the emergency department and placed on buspirone. She took the buspirone for the following year then wean herself off and has not needed anything for anxiety/panic attacks since that time. LMP was 1 week ago. Denies any recent sick symptoms. Related Data Home Medications ?Medication ?Instructions ?Recorded ?Confirmed ?Last Taken ?Type cetirizine 10 mg tablet 10 mg PO DAILY 02/07/20 04/25/25 04/18/25 History Allergies Allergy/AdvReac Type Severity Reaction Status Date / Time No Known Allergies Allergy Verified 04/25/25 12:06 [facility] Past Medical History Medical History Acquired hypothyroidism Paresthesia PXE (pseudoxanthoma elasticum) Hypothyroidism Family History Family History Father Family history of lymphoma Family history of coronary artery disease Social History Social History Smoking packs per day: 0.5 Smoking cigarettes per day: 10.0 Years smoked: 7 Smoking pack-years: 3.50 Smoking status: Never smoker Tobacco type: cigarettes Second hand tobacco smoke exposure: No Smoking end date: 09/08/98 Alcohol intake: current Drinks per week: 5 Substance use: never Substance use type: does not use Do You Feel Safe in your Home?: Yes Lack of Transportation: No Lack of Food: Never True Current Housing: I Have Housing Concerned About Future Housing: No Difficulty Paying Gas/Electric Bills: No Difficulty Paying for Meds: No Currently Unemployed: No Education: Bachelor's Degree Difficulty w/ Childcare or Family Care: No Living arrangements: with family Occupation/Education: occupation Gender identity (if verbalized by the patient): Female Spiritual care concerns: No Comments At time of signature, I have reviewed and agree with nursing past medical, surgical, social and family history unless otherwise noted. Please see nursing chart for further information. There is no relevant family history pertinent to the presenting complaint Exam Narrative: GENERAL: Well-appearing, well-nourished, and in no acute distress. HEAD: Normocephalic, atraumatic. EYES: EOMI. PERRL. No nystagmus. No redness or drainage. Conjunctivae normal. ENT: Mucous membranes pink and moist. Nares clear. NECK: Normal AROM. CHEST: No respiratory distress. Clear to auscultation. HEART: Regular rate and rhythm. No murmur appreciated. Normal peripheral pulses. EXTREMITIES: Normal range of motion. No edema. SKIN: Warm, dry, no rash. Capillary refill normal. Normal skin turgor. NEURO: No focal deficits. Alert and oriented x3. Gait steady. 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 5/5 strength in BLE. PSYCH: Normal affect. No signs of depression or anxiety. Course Course Level of Care: Express Care Visit Vital Signs Vital signs: Vital Signs Temperature 97.0 F L 04/25/25 12:09 Pulse Rate 75 04/25/25 12:09 Respiratory Rate 18 04/25/25 12:09 Blood Pressure 141/80 H 04/25/25 12:09 Pulse Oximetry 100 04/25/25 12:09 Oxygen Delivery Room Air 04/25/25 12:09 Temperature 97.0 F L 04/25/25 12:09 Pulse Rate 95 04/25/25 12:50 Respiratory Rate 18 04/25/25 12:09 Blood Pressure 124/90 04/25/25 12:50 Pulse Oximetry 100 04/25/25 12:09 Oxygen Delivery Room Air 04/25/25 12:09 Reviewed Transfer Transfered to: [place] Transportation: Other (Private vehicle) Transfer rationale: Lightheadedness, shortness of breath Accepting physician: Justin MDM - Dizziness MDM Narrative Medical decision making narrative: 49-year-old female patient presents with a 3 hour history of nausea, shortness of breath, dizziness, lightheadedness. Symptoms started suddenly while patient was at work today. She tried resting and drinking water without improvement of symptoms and called her to retrieve for from work. Symptoms have not improved since onset. Exam is normal. Orthostatic blood pressures are negative. 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 VSS. Patient will be transferred to the ED for further evaluation of her symptoms. Differential Diagnosis Differential diagnosis: Likely benign paroxysmal positional vertigo, orthostatic hypotension, transient cerebral ischemia and other Critical Care Time Critical Care Time Critical Care Time: No Discharge Plan Discharge Clinical Impression: Light-headed, Shortness of breath Patient Disposition: Acute Care Hospital Condition: Stable Patient Language: Citizen Of [place] Prescriptions: No Action cetirizine 10 mg tablet 10 mg PO DAILY fluticasone propionate [Flonase Allergy Relief] 50 mcg/actuation spray,suspension 1 - 2 spray NASAL BID Qty: 18.2 5RF Rx Instructions: administer into each nostril Follow-up/Referrals: Marquez Tomlinson MD [Primary Care Provider] - Time of Disposition: 13:09
[2025-04-25 12:49] VITALS: BP 130/76; PULSE 95
[2025-04-25 12:50] VITALS: BP 124/90; PULSE 95
--- OUTSIDE RECORDS SUMMARY | 2025-04-25 13:02 | XMS_ITS | Clinical Summary ---
Author Organization [facility] Address [address] [place] [id number] Care Team Providers Care Baked And Graphite Inspector Name Role Phone Marquez Tomlinson MD Primary [...] on file Legal Sex Female 4:59 PM RN ENT Gender Identity Not on file Sexual Orientation Not on file Obstetrics History Last Filed Vital Signs Vital Sign Reading Time Taken Comments Blood Pressure 122/78 09/14/2024 8:20 AM RN ENT Pulse 80 09/14/2024 8:20 AM RN ENT Temperature 36.8 C (98.2 F) 04/12/2020 8:53 AM CDT Respiratory Rate 14 07/18/2023 9:30 AM RN ENT Oxygen Saturation 99% 09/14/2024 8:20 AM RN ENT Inhaled Oxygen Concentration - - Weight 69.4 kg (153 lb) 09/14/2024 8:20 AM RN ENT Height 160 cm (5' 3) 09/14/2024 8:20 AM RN ENT Body Mass Index 27.1 09/14/2024 8:20 AM RN ENT Plan of Treatment Health Maintenance Due Date [...] patient's age to complete this topic Insurance [employer] OOS [employer] OOS Care Teams Baked And Graphite Inspector Relationship Specialty Start Date End Date Marquez Tomlinson MD [address] [facility] [address] [place] [address] PCP - General Family Medicine 03/13/20
--- OUTSIDE RECORDS SUMMARY | 2025-04-25 13:02 | XMS_ITS | Clinical Summary ---
Author Organization [facility] Address [address] [place] [address] Care Team Providers Care Csr Retail Name Role Phone Marquez Tomlinson MD Primary Care Provider [phone] Source Comments [facility],non-owned Affiliates and Associated Physician Practices is amultiple site organization consisting of ambulatory clinics and hospital sitesin [place], [place], [place] and [place]. This disclosure is being madepursuant to the Care Everywhere program and may not contain all information available regarding this patient. 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 Gender Identity Not on file Sexual Orientation Not on file Last Filed Vital Signs Vital Sign Reading Time Taken Comments Blood Pressure 104/68 10/01/2017 6:12 PM METAL MOCKUP MAKER Pulse 73 10/01/2017 6:12 PM METAL MOCKUP MAKER Temperature 36.8 C (98.3 F) 10/01/2017 6:12 PM METAL MOCKUP MAKER Respiratory Rate 16 10/01/2017 6:12 PM METAL MOCKUP MAKER Oxygen Saturation 98% 10/01/2017 6:12 PM METAL MOCKUP MAKER Inhaled Oxygen Concentration - - Weight 68 kg (150 lb) 10/01/2017 6:12 PM METAL MOCKUP MAKER Height 160 cm (5' 3) 04/15/2018 10:31 AM CDT Body Mass Index 26.57 10/01/2017 6:12 PM METAL MOCKUP MAKER Plan of Treatment Health Maintenance Due Date [...] this topic Insurance ANTHEM ANTHEM Care Teams Csr Retail Relationship Specialty Start Date End Date Marquez Tomlinson MD [address] [place] [address] PCP - General Family Medicine 09/09/16
== END 2025-04-25 13:08 | disposition short-term general hospital (02) ==
PROVIDERS: Emergency Provider Nurse Practitioner; PCP Family Medicine
DX: R42 Dizziness and giddiness (principal); R06.02 Shortness of breath; Z87.891 Personal history of nicotine dependence; E03.9 Hypothyroidism, unspecified
CPT/HCPCS: 99213; G0463

== ENCOUNTER 2025-04-25 13:21 | Emergency (ER) | payer BC, SELFPAY ==
[2025-04-25] VITALS (8 sets, daily range): BP systolic 106–129; BP diastolic 73–92; PULSE 49–78; RESP 14–20; TEMP 36.4–36.9; O2SAT 98–100
--- NOTE | ~2025-04-25 | XR_ITS ---
EXAMINATION: XR chest 2V 04/25/2025 15:14 INDICATION: Presyncope COMPARISON: None available at this time FINDINGS: The lungs are clear. The cardiomediastinal silhouette is within normal limits. There are no pleural effusions. There is no pneumothorax suspected. IMPRESSION: 1: NO ACUTE CARDIOPULMONARY DISEASE. Reviewed, dictated and finalized at location A.
--- NOTE | ~2025-04-25 | CT_ITS ---
EXAMINATION: CT BRAIN W/O DATE: 04/25/2025 18:00 INDICATION: Syncope. TECHNIQUE: Computed tomography (CT) of the head was performed without intravenous contrast. The dose- length product was 605.33 mGy-cm. Automated exposure control and iterative reconstruction technique w ere employed. COMPARISON: No prior studies for comparison. FINDINGS: Normal brain parenchymal volume for age. Normal guerrero-white differentiation. No acute intrac ranial hemorrhage, infarction, mass or mass effect. No ventriculomegaly or midline shift. Midline sagittal images demonstrate a normal corpus callosum, c raniovertebral junction and sella turcica. Basilar cisterns are patent. Mild mucosal thickening of the left maxillary sinus. Mastoids are pneumatized. IMPRESSION: 1. No acute intracranial abnormality. Reviewed, dictated and finalized at location A.
--- OUTSIDE RECORDS SUMMARY | 2025-04-25 14:25 | XMS_ITS | Clinical Summary ---
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 Gender Identity Not on file Sexual Orientation Not on file Obstetrics History Last Filed Vital Signs Vital Sign Reading Time Taken Comments Blood Pressure 122/78 09/14/2024 8:20 AM LUMBER TYING MACHINE OPERATOR Pulse 80 09/14/2024 8:20 AM LUMBER TYING MACHINE OPERATOR Temperature 36.8 C (98.2 F) 04/12/2020 8:53 AM CDT Respiratory Rate 14 07/18/2023 9:30 AM LUMBER TYING MACHINE OPERATOR Oxygen Saturation 99% 09/14/2024 8:20 AM LUMBER TYING MACHINE OPERATOR Inhaled Oxygen Concentration - - Weight 69.4 kg (153 lb) 09/14/2024 8:20 AM LUMBER TYING MACHINE OPERATOR Height 160 cm (5' 3) 09/14/2024 8:20 AM LUMBER TYING MACHINE OPERATOR Body Mass Index 27.1 09/14/2024 8:20 AM LUMBER TYING MACHINE OPERATOR Plan of Treatment Health Maintenance Due Date [...] patient's age to complete this topic Insurance [employer] OOS [employer] OOS Care Teams Electrician Substation Relationship Specialty Start Date End Date Marquez Tomlinson MD [address] [facility] [address] [place] [address] PCP - General Family Medicine 03/13/20
--- OUTSIDE RECORDS SUMMARY | 2025-04-25 14:25 | XMS_ITS | Clinical Summary ---
Author Organization [facility] Address [address] [place] [address] Care Team Providers Care Mold Yard Worker Name Role Phone Marquez Tomlinson MD Primary Care Provider [phone] Source Comments [facility],non-owned Affiliates and Associated Physician Practices is amultiple site organization consisting of ambulatory clinics and hospital sitesin [place], [place], [place] and [place]. This disclosure is being madepursuant to the Care Everywhere program and may not contain all information available regarding this patient. Last updated 18.[facility] Allergies No known active allergies Medications * [...] on file Legal Sex Female 10:20 AM CRATE OPENER Gender Identity Not on file Sexual Orientation Not on file Last Filed Vital Signs Vital Sign Reading Time Taken Comments Blood Pressure 104/68 10/01/2017 6:12 PM CRATE OPENER Pulse 73 10/01/2017 6:12 PM CRATE OPENER Temperature 36.8 C (98.3 F) 10/01/2017 6:12 PM CRATE OPENER Respiratory Rate 16 10/01/2017 6:12 PM CRATE OPENER Oxygen Saturation 98% 10/01/2017 6:12 PM CRATE OPENER Inhaled Oxygen Concentration - - Weight 68 kg (150 lb) 10/01/2017 6:12 PM CRATE OPENER Height 160 cm (5' 3) 04/15/2018 10:31 AM CDT Body Mass Index 26.57 10/01/2017 6:12 PM CRATE OPENER Plan of Treatment Health Maintenance Due Date [...] this topic Insurance ANTHEM ANTHEM Care Teams Mold Yard Worker Relationship Specialty Start Date End Date Marquez Tomlinson MD [address] [place] [address] PCP - General Family Medicine 09/09/16
--- NOTE | 2025-04-25 14:48 | ED.DIZZY ---
HPI - Dizziness General Chief Complaint: Dizziness <Sravanthi Scherer PA-C - Last Filed: 04/26/25 09:46> Stated Complaint: SOB, dizzy, lightheaded <JANNA Navarro Last Filed: 04/26/25 09:46> Time Seen by Provider: 04/25/25 14:48 <JANNA Navarro Last Filed: 04/26/25 09:46> Focused HPI: This is a 49 year old female that presents to the ER for an episode of dizziness. Reports she was at work and around 9:30 this morning she felt like something wasn't right. She felt very nauseous like she was going to pass out. She thinks she passed out for a second. Feels short of breath with chest burning currently. GENERAL: Well-appearing, well-nourished, and in no acute distress. HEAD: Normocephalic, atraumatic. CHEST: Clear to auscultation. ?No respiratory distress. HEART: Regular rate and rhythm.? NEURO: ?Alert and oriented x3. Patient screened in triage and initial orders placed.? ?Additional care and disposition to be based upon?diagnostic testing and treatment. <Sravanthi Scherer PA-C - Last Filed: 04/26/25 09:46> Focused HPI: This is a 49 year old female that presents to the ER for an episode of dizziness. Reports she was at work and around 9:30 this morning she felt like something wasn't right. She felt very nauseous like she was going to pass out. She thinks she passed out for a second. Feels short of breath with chest burning currently. GENERAL: Well-appearing, well-nourished, and in no acute distress. HEAD: Normocephalic, atraumatic. CHEST: Clear to auscultation. ?No respiratory distress. HEART: Regular rate and rhythm.? NEURO: ?Alert and oriented x3. Patient screened in triage and initial orders placed.? ?Additional care and disposition to be based upon?diagnostic testing and treatment. <JANNA Ny Last Filed: 04/25/25 21:07> Source: patient <JANNA Ny Last Filed: 04/25/25 21:07> Mode of arrival: ambulatory <Breanna Covarrubias PA-C - Last Filed: 04/25/25 21:07> Limitations: no limitations <Breanna Covarrubias PA-C - Last Filed: 04/25/25 21:07> History of Present Illness HPI Narrative: Agree with above HPI. Denies history of similar episodes. Does note that she has been feeling more anxious recently and has been stressed with work. Denies focal weakness or numbness. Denies head injury. <rBeanna Covarrubias PA-C - Last Filed: 04/25/25 21:07> Related Data Home Medications: Home Medications ?Medication ?Instructions ?Recorded ?Confirmed ?Last Taken ?Type cetirizine 10 mg tablet 10 mg PO DAILY 02/07/20 04/25/25 04/18/25 History <Sravanthi Scherer PA-C - Last Filed: 04/26/25 09:46> Allergies/Adverse Reactions: Allergies Allergy/AdvReac Type Severity Reaction Status Date / Time No Known Allergies Allergy Verified 04/25/25 12:06 <Sravanthi Scherer PA-C - Last Filed: 04/26/25 09:46> Review of Systems Review of Systems: All systems reviewed & are unremarkable except as noted in HPI. <Breanna Covarrubias PA-C - Last Filed: 04/25/25 21:07> All systems reviewed & are unremarkable except as noted in HPI and below <Breanna Covarrubias PA-C - Last Filed: 04/25/25 21:07> [facility] Past Medical History Medical History: Medical History Acquired hypothyroidism Paresthesia PXE (pseudoxanthoma elasticum) Hypothyroidism <Sravanthi Scherer PA-C - Last Filed: 04/26/25 09:46> Family History Family History: Family History Father Family history of lymphoma Family history of coronary artery disease <Sravanthi Scherer PA-C - Last Filed: 04/26/25 09:46> Social History Social History: Social History Smoking packs per day: 0.5 Smoking cigarettes per day: 10.0 Years smoked: 7 Smoking pack-years: 3.50 Smoking status: Never smoker Tobacco type: cigarettes Second hand tobacco smoke exposure: No Smoking end date: 09/08/98 Alcohol intake: current Drinks per week: 5 Substance use: never Substance use type: does not use Do You Feel Safe in your Home?: Yes Lack of Transportation: No Lack of Food: Never True Current Housing: I Have Housing Concerned About Future Housing: No Difficulty Paying Gas/Electric Bills: No Difficulty Paying for Meds: No Currently Unemployed: No Education: Bachelor's Degree Difficulty w/ Childcare or Family Care: No Living arrangements: with family Occupation/Education: occupation Gender identity (if verbalized by the patient): Female Spiritual care concerns: No <Sravanthi Scherer PA-C - Last Filed: 04/26/25 09:46> Exam Narrative: GENERAL: Well appearing, well-nourished, non-toxic, in no acute distress. HEAD: Normocephalic, atraumatic. EYES: PERRL/EOMI, conjunctiva clear, no nystagmus RESPIRATORY: Airway patent, respirations nonlabored. Clear to auscultation bilaterally, no rales, rhonchi, wheezing. CARDIOVASCULAR: Regular rate and rhythm without murmurs, rubs, or gallops. MUSCULOSKELETAL: Moves all extremities. No gross deformities. SKIN: Warm, dry, normal color. NEURO: A&O X3. Speech clear. Cranial nerves II-XII grossly intact. Steady gait. No ataxic movements. Strength 5 of 5 in upper lower extremities bilaterally. No pronator drift. Equal sandwich wrapper strength bilaterally. PSYCHIATRIC: Appropriate mood and affect. Normal interaction. <Breanna Covarrubias PA-C - Last Filed: 04/25/25 21:07> Course Vital Signs Vital signs: Vital Signs Temperature 98.2 F 04/25/25 13:42 Pulse Rate 66 04/25/25 13:42 Respiratory Rate 14 04/25/25 13:42 Blood Pressure 117/74 04/25/25 13:42 Pulse Oximetry 100 04/25/25 13:42 Temperature 97.6 F 04/25/25 20:27 Pulse Rate 54 L 04/25/25 20:27 Respiratory Rate 16 04/25/25 20:27 Blood Pressure 129/80 04/25/25 20:27 Pulse Oximetry 98 04/25/25 20:27 Oxygen Delivery Room Air 04/25/25 19:18 <Sravanthi Scherer PA-C - Last Filed: 04/26/25 09:46> Vital Signs Temperature 98.2 F 04/25/25 13:42 Pulse Rate 66 04/25/25 13:42 Respiratory Rate 14 04/25/25 13:42 Blood Pressure 117/74 04/25/25 13:42 Pulse Oximetry 100 04/25/25 13:42 Temperature 97.6 F 04/25/25 20:27 Pulse Rate 54 L 04/25/25 20:27 Respiratory Rate 16 04/25/25 20:27 Blood Pressure 129/80 04/25/25 20:27 Pulse Oximetry 98 04/25/25 20:27 Oxygen Delivery Room Air 04/25/25 19:18 <Breanna Covarrubias PA-C - Last Filed: 04/25/25 21:07> MDM - Dizziness MDM Narrative Medical decision making narrative: Patient presented to ED with near syncopal episode today, possibly lost consciousness for a couple of seconds. Reported feeling dizzy, lightheaded, nauseous, short of breath. Feeling improved currently. Vital signs are stable upon arrival. Patient is in no acute distress upon my evaluation. She is neurologically intact. Orthostatic vital signs were evaluated and with a slight drop in blood pressure from sitting to standing. Additionally patient was symptomatic with this. Patient given fluids. EKG without concerning ST changes. Sinus bradycardia. No appreciable heart block. Baseline troponin negative. D-dimer within normal range. Chest x-ray is clear CT brain negative Laboratory studies are are otherwise fairly unremarkable. Stable electrolytes. Bicarb slightly low at 20. Mag within normal range. 3HR ekg w/o interval changes. 3HR trop also undetectable Overall workup is reassuring. Suspicious for vasovagal episode. Patient does admit to increased anxiety and stress at work which is likely not helping situation. Did advised patient to stay well hydrated, recommended close follow-up with PCP for further evaluation. Discussed bradycardia with patient. Patient is unsure what her baseline HR is. She has remained sinus rhythm here, I do not see any evidence of dysrhythmia, but discussed possibility of this contributing to symptoms and potential for required Holter monitor in the future. Patient sees Dr. Tomas with Cardiology for genetic vascular issues. She reports she has a appointment with him within the next 2 weeks. I discussed case with Dr. Bach, cardiology guest relations associate, agrees w/ plan, will have office call patient tomorrow to set up 48hr Holter monitor. Patient otherwise safe for discharge home at this time. She feels comfortable with this plan. She was given very strict return precautions. Patient voiced understanding. Patient discharged in stable condition. <Breanna Covarrubias PA-C - Last Filed: 04/25/25 21:07> Medical Records Attestation: I reviewed the patient's medical records. <JANNA Ny Last Filed: 04/25/25 21:07> Lab Data Attestation: I reviewed the patient's lab results. <Breanna Covarrubias PA-C - Last Filed: 04/25/25 21:07> Result diagrams: 04/25/25 15:31 04/25/25 15:31 <Sravanthi Scherer PA-C - Last Filed: 04/26/25 09:46> Labs: Lab Results 04/25/25 04/25/25 04/25/25 Range/Units 15:30 15:31 16:48 WBC 10.4 H (4.5-10.0) K/mm3 RBC 4.32 (4.2-5.4) M/mm3 Hgb 13.8 (12.0-15.0) g/dL Hct 41.0 (37.0-47.0) % MCV 94.9 (80-100) fl MCH 31.9 (26-34) pg MCHC 33.7 (32-36) g/dl RDW 12.8 (11.5-14.5) % Plt Count 323 (150-375) k/mm3 MPV 9.8 (7.4-10.4) fl Immature Gran % (Auto) 0.3 (0-0.5) % Neut % (Auto) 75.1 H (45.5-73.1) % Lymph % (Auto) 17.3 L (18.3-44.2) % [place] % (Auto) 6.4 (2.6-8.5) % Eos % (Auto) 0.4 (0-4.4) % Baso % (Auto) 0.5 (0.2-1.2) % Lymph # (Auto) 1.79 (0.9-3.2) K/mm3 [place] # (Auto) 0.7 H (0.1-0.6) K/mm3 Eos # (Auto) 0.0 (0-0.3) K/mm3 Baso # (Auto) 0.1 (0.0-0.1) K/mm3 Abs Immat Gran (auto) 0.03 (0.00-0.031) K/mm3 Absolute Neuts (auto) 7.8 H (1.3-6.7) K/mm3 Absolute Nucleated RBC 0.000 (0.0-0.012) K/mm3 Nucleated RBC % 0.0 (0.0-0.2) % PT 13.6 (11.1-14.7) Seconds INR 1.0 APTT 29.3 (22.3-36.8) Seconds D-Dimer < 0.27 (<0.48) ug/mL Sodium 135 L (137-145) mmol/L Potassium 3.9 (3.4-5.0) mmol/L Chloride 107 (98-107) mmol/L Carbon Dioxide 20 L (22-30) mmol/L Anion Gap 8 (4-12) mmol/L BUN 8 (7-17) mg/dL Creatinine 0.63 L (0.7-1.0) mg/dL Estim Creat Clear Calc 78 ml/min Estimated GFR > 60 (59 - ) Glucose 95 (65-110) mg/dL Calcium 9.1 (8.4-10.2) mg/dL Magnesium 2.0 (1.6-2.3) mg/dL Total Bilirubin 0.5 (0.2-1.3) mg/dL AST 21 (14-36) U/L ALT 14 (6-35) U/L Alkaline Phosphatase 79 (38-126) U/L Troponin I < 0.012 (0.000-0.034) ng/mL Total Protein 6.7 (6.3-8.2) g/dL Albumin 4.1 (3.5-5.1) g/dL POC Urine HCG, Qual Negative (Negative) 04/25/25 Range/Units 18:37 WBC (4.5-10.0) K/mm3 RBC (4.2-5.4) M/mm3 Hgb (12.0-15.0) g/dL Hct (37.0-47.0) % MCV (80-100) fl MCH (26-34) pg MCHC (32-36) g/dl RDW (11.5-14.5) % Plt Count (150-375) k/mm3 MPV (7.4-10.4) fl Immature Gran % (Auto) (0-0.5) % Neut % (Auto) (45.5-73.1) % Lymph % (Auto) (18.3-44.2) % [place] % (Auto) (2.6-8.5) % Eos % (Auto) (0-4.4) % Baso % (Auto) (0.2-1.2) % Lymph # (Auto) (0.9-3.2) K/mm3 [place] # (Auto) (0.1-0.6) K/mm3 Eos # (Auto) (0-0.3) K/mm3 Baso # (Auto) (0.0-0.1) K/mm3 Abs Immat Gran (auto) (0.00-0.031) K/mm3 Absolute Neuts (auto) (1.3-6.7) K/mm3 Absolute Nucleated RBC (0.0-0.012) K/mm3 Nucleated RBC % (0.0-0.2) % PT (11.1-14.7) Seconds INR APTT (22.3-36.8) Seconds D-Dimer (<0.48) ug/mL Sodium (137-145) mmol/L Potassium (3.4-5.0) mmol/L Chloride (98-107) mmol/L Carbon Dioxide (22-30) mmol/L Anion Gap (4-12) mmol/L BUN (7-17) mg/dL Creatinine (0.7-1.0) mg/dL Estim Creat Clear Calc ml/min Estimated GFR (59 - ) Glucose (65-110) mg/dL Calcium (8.4-10.2) mg/dL Magnesium (1.6-2.3) mg/dL Total Bilirubin (0.2-1.3) mg/dL AST (14-36) U/L ALT (6-35) U/L Alkaline Phosphatase (38-126) U/L Troponin I < 0.012 (0.000-0.034) ng/mL Total Protein (6.3-8.2) g/dL Albumin (3.5-5.1) g/dL POC Urine HCG, Qual (Negative) <Sravanthi Scherer PA-C - Last Filed: 04/26/25 09:46> Lab Results 04/25/25 04/25/25 04/25/25 Range/Units 15:30 15:31 16:48 WBC 10.4 H (4.5-10.0) K/mm3 RBC 4.32 (4.2-5.4) M/mm3 Hgb 13.8 (12.0-15.0) g/dL Hct 41.0 (37.0-47.0) % MCV 94.9 (80-100) fl MCH 31.9 (26-34) pg MCHC 33.7 (32-36) g/dl RDW 12.8 (11.5-14.5) % Plt Count 323 (150-375) k/mm3 MPV 9.8 (7.4-10.4) fl Immature Gran % (Auto) 0.3 (0-0.5) % Neut % (Auto) 75.1 H (45.5-73.1) % Lymph % (Auto) 17.3 L (18.3-44.2) % [place] % (Auto) 6.4 (2.6-8.5) % Eos % (Auto) 0.4 (0-4.4) % Baso % (Auto) 0.5 (0.2-1.2) % Lymph # (Auto) 1.79 (0.9-3.2) K/mm3 [place] # (Auto) 0.7 H (0.1-0.6) K/mm3 Eos # (Auto) 0.0 (0-0.3) K/mm3 Baso # (Auto) 0.1 (0.0-0.1) K/mm3 Abs Immat Gran (auto) 0.03 (0.00-0.031) K/mm3 Absolute Neuts (auto) 7.8 H (1.3-6.7) K/mm3 Absolute Nucleated RBC 0.000 (0.0-0.012) K/mm3 Nucleated RBC % 0.0 (0.0-0.2) % PT 13.6 (11.1-14.7) Seconds INR 1.0 APTT 29.3 (22.3-36.8) Seconds D-Dimer < 0.27 (<0.48) ug/mL Sodium 135 L (137-145) mmol/L Potassium 3.9 (3.4-5.0) mmol/L Chloride 107 (98-107) mmol/L Carbon Dioxide 20 L (22-30) mmol/L Anion Gap 8 (4-12) mmol/L BUN 8 (7-17) mg/dL Creatinine 0.63 L (0.7-1.0) mg/dL Estim Creat Clear Calc 78 ml/min Estimated GFR > 60 (59 - ) Glucose 95 (65-110) mg/dL Calcium 9.1 (8.4-10.2) mg/dL Magnesium 2.0 (1.6-2.3) mg/dL Total Bilirubin 0.5 (0.2-1.3) mg/dL AST 21 (14-36) U/L ALT 14 (6-35) U/L Alkaline Phosphatase 79 (38-126) U/L Troponin I < 0.012 (0.000-0.034) ng/mL Total Protein 6.7 (6.3-8.2) g/dL Albumin 4.1 (3.5-5.1) g/dL POC Urine HCG, Qual Negative (Negative) 04/25/25 Range/Units 18:37 WBC (4.5-10.0) K/mm3 RBC (4.2-5.4) M/mm3 Hgb (12.0-15.0) g/dL Hct (37.0-47.0) % MCV (80-100) fl MCH (26-34) pg MCHC (32-36) g/dl RDW (11.5-14.5) % Plt Count (150-375) k/mm3 MPV (7.4-10.4) fl Immature Gran % (Auto) (0-0.5) % Neut % (Auto) (45.5-73.1) % Lymph % (Auto) (18.3-44.2) % [place] % (Auto) (2.6-8.5) % Eos % (Auto) (0-4.4) % Baso % (Auto) (0.2-1.2) % Lymph # (Auto) (0.9-3.2) K/mm3 [place] # (Auto) (0.1-0.6) K/mm3 Eos # (Auto) (0-0.3) K/mm3 Baso # (Auto) (0.0-0.1) K/mm3 Abs Immat Gran (auto) (0.00-0.031) K/mm3 Absolute Neuts (auto) (1.3-6.7) K/mm3 Absolute Nucleated RBC (0.0-0.012) K/mm3 Nucleated RBC % (0.0-0.2) % PT (11.1-14.7) Seconds INR APTT (22.3-36.8) Seconds D-Dimer (<0.48) ug/mL Sodium (137-145) mmol/L Potassium (3.4-5.0) mmol/L Chloride (98-107) mmol/L Carbon Dioxide (22-30) mmol/L Anion Gap (4-12) mmol/L BUN (7-17) mg/dL Creatinine (0.7-1.0) mg/dL Estim Creat Clear Calc ml/min Estimated GFR (59 - ) Glucose (65-110) mg/dL Calcium (8.4-10.2) mg/dL Magnesium (1.6-2.3) mg/dL Total Bilirubin (0.2-1.3) mg/dL AST (14-36) U/L ALT (6-35) U/L Alkaline Phosphatase (38-126) U/L Troponin I < 0.012 (0.000-0.034) ng/mL Total Protein (6.3-8.2) g/dL Albumin (3.5-5.1) g/dL POC Urine HCG, Qual (Negative) <Breanna Covarrubias PA-C - Last Filed: 04/25/25 21:07> Imaging Data Attestation: I personally reviewed and interpreted this imaging study as follows: <Breanna Covarrubias PA-C - Last Filed: 04/25/25 21:07> Radiologist's impression: ITS Impressions Chest X-Ray 04/25/25 15:21 IMPRESSION: 1: NO ACUTE CARDIOPULMONARY DISEASE. Head CT 04/25/25 18:05 IMPRESSION: 1. No acute intracranial abnormality. <Breanna Covarrubias PA-C - Last Filed: 04/25/25 21:07> ECG Data EKG #1: Attestation: I personally reviewed and interpreted this ECG as follows: <Breanna Covarrubias PA-C - Last Filed: 04/25/25 21:07> ECG completion date: 04/25/25 <Breanna Covarrubias PA-C - Last Filed: 04/25/25 21:07> ECG completion time: 15:23 <Breanna Covarrubias PA-C - Last Filed: 04/25/25 21:07> EKG Interpretation: bradycardia (54), sinus rhythm and non-specific ST changes <JANNA Ny Last Filed: 04/25/25 21:07> Critical Care Time Critical Care Time Critical Care Time: No <Sravanthi Scherer PA-C - Last Filed: 04/26/25 09:46> Discharge Plan Discharge Clinical Impression: Sinus bradycardia Syncope Qualifiers: Syncope type: unspecified Qualified Code(s): R55 - Syncope and collapse <JANNA Navarro Last Filed: 04/26/25 09:46> Patient Disposition: Home <JANNA Navarro Last Filed: 04/26/25 09:46> Condition: Stable <JANNA Navarro Last Filed: 04/26/25 09:46> Instructions: Antibiotic Form, Syncope (ED), Bradycardia (ED), Lightheadedness (ED) <JANNA Navarro Last Filed: 04/26/25 09:46> Additional Instructions: Your workup here was overall reassuring. Stay well hydrated at home and work. Your heart rate was noted to be slightly low at today. The cardiology office should be contacting you tomorrow to arrange for a Holter monitor. Follow-up with your primary care doctor and ocean export account manager for further evaluation. Return to the ED if you experience worsening or severe symptoms, recurrent passing out, recurrent dizziness/lightheadedness, chest pain, difficulty breathing, unable to keep down food or drink, numbness or weakness of arm or leg, or any other symptoms of concern. <Sravanthi Scherer PA-C - Last Filed: 04/26/25 09:46> Patient Language: Romanian <Sravanthi Scherer PA-C - Last Filed: 04/26/25 09:46> Prescriptions: No Action cetirizine 10 mg tablet 10 mg PO DAILY fluticasone propionate [Flonase Allergy Relief] 50 mcg/actuation spray,suspension 1 - 2 spray NASAL BID Qty: 18.2 5RF Rx Instructions: administer into each nostril <Sravanthi Scherer PA-C - Last Filed: 04/26/25 09:46> Follow-up/Referrals: Marquez Tomlinson MD [Primary Care Provider, Family Practice] Jamie Tomas MD [Physician, Cardiology] Referral Note: CARDIOLOGY <Sravanthi Scherer PA-C - Last Filed: 04/26/25 09:46> Time of Disposition: 19:48 <Sravanthi Scherer PA-C - Last Filed: 04/26/25 09:46> 19:48 <JANNA Ny Last Filed: 04/25/25 21:07>
--- NOTE | 2025-04-25 14:49 | ECG_ITS ---
Test Date: 2025-04-25 15:23:14 Measurements Intervals [place] Rate: 54 P: 60 DC: 135 QRS: 29 QRSD: 83 T: 53 QT: 420 QTc: 401 Interpretive Statements SINUS BRADYCARDIA CANNOT R/O SEPTAL INFARCT, AGE INDETERMINATE BASELINE ARTIFACT- I, III, AVL ABNORMAL ECG No previous ECG available for comparison Electronically Signed On 04-25-2025 15:25:50 CDT by Rodrigue Mg D.O.
[2025-04-25] MEDS: ONDANSETRON INJ 4 MG/2 ML VIAL IV PUSH (15:28)
[2025-04-25] MEDS: FAMOTIDINE 20 MG/2 ML VIAL IV PUSH (15:28)
[2025-04-25 15:43] LABS: Hematocrit 41.0 % (37.0-47.0); Hemoglobin 13.8 g/dL (12.0-15.0); Immature Granulocyte Percent A 0.3 % (0-0.5); Lymphocytes Absolute Auto 1.79 K/mm3 (0.9-3.2); Mean Corpuscular HGB Conc 33.7 g/dl (32-36); Mean Corpuscular Hemoglobin 31.9 pg (26-34); Mean Corpuscular Volume 94.9 fl (80-100); Nucleated Red Blood Cells Absolute Auto 0.000 K/mm3 (0.0-0.012); Nucleated Red Blood Cells Perc 0.0 % (0.0-0.2); Platelet Count Result 323 k/mm3 (150-375); Red Blood Count 4.32 M/mm3 (4.2-5.4); White Blood Count 10.4 K/mm3 (4.5-10.0)
--- OUTSIDE RECORDS SUMMARY | 2025-04-25 15:48 | XMS_ITS | Clinical Summary ---
Author Organization [facility] Address [address] [place] [id number] Care Team Providers Care Hydraulic Elevator Constructor Name Role Phone Marquez Tomlinson MD Primary [...] on file Legal Sex Female 4:59 PM OVEN PRESS TENDER Gender Identity Not on file Sexual Orientation Not on file Obstetrics History Last Filed Vital Signs Vital Sign Reading Time Taken Comments Blood Pressure 122/78 09/14/2024 8:20 AM OVEN PRESS TENDER Pulse 80 09/14/2024 8:20 AM OVEN PRESS TENDER Temperature 36.8 C (98.2 F) 04/12/2020 8:53 AM CDT Respiratory Rate 14 07/18/2023 9:30 AM OVEN PRESS TENDER Oxygen Saturation 99% 09/14/2024 8:20 AM OVEN PRESS TENDER Inhaled Oxygen Concentration - - Weight 69.4 kg (153 lb) 09/14/2024 8:20 AM OVEN PRESS TENDER Height 160 cm (5' 3) 09/14/2024 8:20 AM OVEN PRESS TENDER Body Mass Index 27.1 09/14/2024 8:20 AM OVEN PRESS TENDER Plan of Treatment Health Maintenance Due Date [...] patient's age to complete this topic Insurance [employer] Mobile OOS Laser View OOS Care Teams Hydraulic Elevator Constructor Relationship Specialty Start Date End Date Marquez Tomlinson MD [address] [facility] [address] [place] [address] PCP - General Family Medicine 03/13/20
--- OUTSIDE RECORDS SUMMARY | 2025-04-25 15:48 | XMS_ITS | Clinical Summary ---
Author Organization [facility] Address [address] [place] [address] Care Team Providers Care Show Dog Trainer Name Role Phone Marquez Tomlinson MD Primary Care Provider [phone] [facility],non-owned Affiliates and Associated Physician Practices is amultiple site organization consisting of ambulatory clinics and hospital sitesin [place], [place], [place] and [place]. This disclosure is being madepursuant to the Care Everywhere program and may not contain all information available regarding this patient. Last updated 18.[facility] Allergies No known active allergies Medications * [...] on file Legal Sex Female 10:20 AM WAREHOUSE ORDER FILLER Gender Identity Not on file Sexual Orientation Not on file Last Filed Vital Signs Vital Sign Reading Time Taken Comments Blood Pressure 104/68 10/01/2017 6:12 PM WAREHOUSE ORDER FILLER Pulse 73 10/01/2017 6:12 PM WAREHOUSE ORDER FILLER Temperature 36.8 C (98.3 F) 10/01/2017 6:12 PM WAREHOUSE ORDER FILLER Respiratory Rate 16 10/01/2017 6:12 PM WAREHOUSE ORDER FILLER Oxygen Saturation 98% 10/01/2017 6:12 PM WAREHOUSE ORDER FILLER Inhaled Oxygen Concentration - - Weight 68 kg (150 lb) 10/01/2017 6:12 PM WAREHOUSE ORDER FILLER Height 160 cm (5' 3) 04/15/2018 10:31 AM CDT Body Mass Index 26.57 10/01/2017 6:12 PM WAREHOUSE ORDER FILLER Plan of Treatment Health Maintenance Due Date [...] this topic Insurance ANTHEM ANTHEM Care Teams Show Dog Trainer Relationship Specialty Start Date End Date Marquez Tomlinson MD [address] [place] [address] PCP - General Family Medicine 09/09/16
[2025-04-25 15:55] LABS: Alanine Aminotransferase 14 U/L (6-35); Albumin Level 4.1 g/dL (3.5-5.1); Alkaline Phosphatase 79 U/L (38-126); Anion Gap 8 mmol/L (4-12); Aspartate Amino Transferase 21 U/L (14-36); Bilirubin,Total 0.5 mg/dL (0.2-1.3); Blood Urea Nitrogen 8 mg/dL (7-17); Calcium 9.1 mg/dL (8.4-10.2); Carbon Dioxide 20 mmol/L (22-30); Chloride 107 mmol/L (98-107); Estimated CRCL calculation 78 ml/min; Estimated Glomerular Filt Rate > 60; Glucose 95 mg/dL (65-110); Potassium 3.9 mmol/L (3.4-5.0); Sodium 135 mmol/L (137-145); Total Protein 6.7 g/dL (6.3-8.2)
[2025-04-25 16:04] LABS: INR 1.0; Prothrombin Time 13.6 Seconds (11.1-14.7)
[2025-04-25 16:05] LABS: Partial Thromboplastin Time 29.3 Seconds (22.3-36.8)
[2025-04-25 16:06] LABS: Troponin I < 0.012 ng/mL (0.000-0.034)
[2025-04-25 16:50] LABS: BEDSIDEPREGUCG Negative (Negative)
[2025-04-25 17:11] LABS: Magnesium 2.0 mg/dL (1.6-2.3)
--- NOTE | 2025-04-25 18:29 | ECG_ITS ---
Test Date: 2025-04-25 18:39:35 Measurements Intervals [place] Rate: 54 P: 64 OK: 151 QRS: 17 QRSD: 80 T: 50 QT: 445 QTc: 422 Interpretive Statements SINUS BRADYCARDIA BASELINE ARTIFACT- I, II, III, AVR, AVL, AVF BORDERLINE ECG Compared to ECG 04/25/2025 15:23:14 NO SIGNIFICANT CHANGE Electronically Signed On 04-25-2025 19:49:55 CDT by Rodrigue Mg D.O.
[2025-04-25] MEDS: SODIUM CHLORIDE 0.9% IV 1,000 ML 999 ML IV CONT (19:02)
[2025-04-25 19:06] LABS: Troponin I < 0.012 ng/mL (0.000-0.034)
== END 2025-04-25 20:28 | disposition home or self-care (01) ==
PROVIDERS: Physician Assistant; Emergency Provider Physician Assistant; PCP Family Medicine
DX: R00.1 Bradycardia, unspecified (principal); R55 Syncope and collapse; E03.9 Hypothyroidism, unspecified
CPT/HCPCS: 36415; 70450; 71046; 80053; 81025; 83735; 84484; 85025; 85380; 85610; 85730; 93005; 96361; 96374; 96375; 99284; J2405; J7030

== ENCOUNTER 2025-06-22 12:50 | Outpatient (CLI) | payer BC, SELFPAY ==
--- NOTE | ~2025-06-22 | MR_ITS ---
EXAMINATION: MR cervical spine wo con DATE: 06/22/2025 13:22 INDICATION: Spinal stenosis, cervical region. TECHNIQUE: Magnetic resonance imaging (MRI) of the cervical spine was performed without intravenous contrast. COMPARISON: None FINDINGS: Alignment is normal. Vertebral body heights are normal. Intervertebral disc heights are normal. The spinal cord signal intensity is normal. The following disc levels are specifically discussed: C2-C3: The disc does not extend beyond the endplate margin. There is severe right uncovertebral joint osteoarthritis. There is severe bilateral facet joint osteoarthritis. There is moderate right and mild left neural foraminal stenosis. There is no central canal stenosis. C3-C4: The disc does not extend beyond the endplate margin. There is mild bilateral uncovertebral joint osteoarthritis. There is severe bilateral facet joint osteoarthritis. There is mild left neural foraminal stenosis. There is no central canal stenosis. C4-C5: The disc does not extend beyond the endplate margin. There is mild right uncovertebral joint osteoarthritis. There is severe right and mild left facet joint osteoarthritis. There is mild right neural foraminal stenosis. There is no central canal stenosis. C5-C6: There is a central protrusion. There is mild bilateral uncovertebral joint osteoarthritis. There is severe bilateral facet joint osteoarthritis. There is no neural foraminal stenosis. There is no central canal stenosis. C6-C7: The disc does not extend beyond the endplate margin. There is no uncovertebral joint osteoarthritis. There is severe right and mild left facet joint osteoarthritis. There is no neural foraminal stenosis. There is no central canal stenosis. C7-T1: The disc does not extend beyond the endplate margin. There is no uncovertebral joint osteoarthritis. There is moderate bilateral facet joint osteoarthritis. There is mild right neural foraminal stenosis. There is no central canal stenosis. IMPRESSION: 1. Mild cervical spondylosis. Reviewed, dictated and finalized at location E.
== END 2025-06-22 12:51 | disposition home or self-care (01) ==
LOC: MICIMG 12:51
PROVIDERS: PCP Family Medicine; Visit Provider Nurse Practitioner Adult Health
DX: M47.812 Spondylosis without myelopathy or radiculopathy, cervical region (principal); M48.02 Spinal stenosis, cervical region
CPT/HCPCS: 72141